=== PATIENT | female | born 1995 | race African-American/Black ===

== ENCOUNTER 2017-09-14 10:09 | Emergency (ER) | payer SELFPAY ==
[2017-09-14 11:45] LABS: Urine Blood NEGATIVE (NEG); Urine Glucose NEGATIVE (NEG); Urine Protein 1+ (NEG); Urine pH 6.5 (5.0-7.0)
[2017-09-14 11:57] LABS: Absolute Monocytes 0.6 K/uL (0.1-1.3); Absolute Neutrophil 3.6 K/uL (1.8-8.0); Basophils % 0.2 % (0-1.3); Eosinophils % 0.6 % (0-4.4); Hematocrit 40.1 % (36.0-45.0); Lymphocytes % 19.2 % (15.3-44.8); MCH 29.2 pg (27.0-35.0); MPV 10.1 fL (7.6-11.3); RBC Red Blood Cell Count 4.72 M/uL (3.86-4.86)
[2017-09-14 12:22] LABS: BUN Blood Urea Nitrogen 13 mg/dL (7-18); Bicarbonate 28 mmol/L (21-32); Glucose Level 91 mg/dL (74-106); Sodium Level 136 mmol/L (136-145)
[2017-09-14 12:37] LABS: T3 Free 2.44 pg/mL (2.18-3.98); Thyroid Stimulating Hormone 1.74 uIU/mL (0.36-3.74)
--- NOTE | 2017-09-14 12:49 | EDPHYS ---
Physician Documentation [facility] Name: Renee Epstein Age: 22 yrs Sex: Female : 1995 Arrival Date: 09/14/2017 Time: 10:14 Bed 14 Private MD: ED Physician Terry Escalera HPI: 09/14 10:30 This 22 yrs old Black Female presents to ER via Ambulatory with complaints of Passed cp Out Prior To Arrival. 10:30 The patient has experienced syncope, collapsed, lost consciousness. Onset: The cp symptoms/episode began/occurred just prior to arrival. Duration: This was a single episode, that lasted an unknown period of time. 10:30 Associated signs and symptoms: Pertinent negatives: abdominal pain, chest pain, cp headache, palpitations, seizure. 10:30 Associated injury: The patient did not suffer any apparent associated injury. Current cp symptoms: Currently, the patient is not experiencing any symptoms. Patient reports she was at doctor's office having blood drawn when she reportedly lost consciousness. 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 - Social history:: Smoking status: Patient/guardian denies using tobacco. - Ebola Screening: : Patient negative for fever greater than or equal to 101.5 degrees Fahrenheit, and additional compatible Ebola Virus Disease symptoms Patient denies exposure to infectious person Patient denies travel to an Ebola-affected area in the 21 days before illness onset No symptoms or risks identified at this time. ROS: 10:35 Constitutional: Negative for body aches, chills, fever, poor PO intake. cp 10:35 Eyes: Negative for injury, pain, redness, and discharge. cp 10:35 ENT: Negative for drainage from ear(s), ear pain, sore throat, difficulty swallowing, difficulty handling secretions. 10:35 Cardiovascular: Negative for chest pain, edema, palpitations. 10:35 Respiratory: Negative for cough, shortness of breath, wheezing. 10:35 Abdomen/GI: Negative for abdominal pain, nausea, vomiting, and diarrhea, constipation, black/tarry stool, rectal bleeding. 10:35 Back: Negative for pain at rest, pain with movement, radiated pain. 10:35 : Negative for urinary symptoms. Exam: 10:40 ECG was reviewed by the Attending Physician. cp 10:42 Constitutional: The patient appears in no acute distress, alert, awake, cp non-diaphoretic, non-toxic, well developed, well nourished. 10:42 Head/Face: Normocephalic, atraumatic. Eyes: Pupils equal round and reactive to light, cp extra-ocular motions intact. Lids and lashes normal. Conjunctiva and sclera are non-icteric and not injected. Cornea within normal limits. Periorbital areas with no swelling, redness, or edema. ENT: Nares patent. No nasal discharge, no septal abnormalities noted. Tympanic membranes are normal and external auditory canals are clear. Oropharynx with no redness, swelling, or masses, exudates, or evidence of obstruction, uvula midline. Mucous membranes moist. Neck: Trachea midline, no thyromegaly or masses palpated, and no cervical lymphadenopathy. Supple, full range of motion without nuchal rigidity, or vertebral point tenderness. No Meningismus. Chest/axilla: Normal chest wall appearance and motion. Nontender with no deformity. No lesions are appreciated. Cardiovascular: Regular rate and rhythm with a normal S1 and S2. No gallops, murmurs, or rubs. Normal PMI, no JVD. No pulse deficits. Respiratory: Lungs have equal breath sounds bilaterally, clear to auscultation and percussion. No rales, rhonchi or wheezes noted. No increased work of breathing, no retractions or nasal flaring. Abdomen/GI: Soft, non-tender, with normal bowel sounds. No distension or tympany. No guarding or rebound. No evidence of tenderness throughout. Skin: Warm, dry with normal turgor. Normal color with no rashes, no lesions, and no evidence of cellulitis. Neuro: Awake and alert, GCS 15, oriented to person, place, time, and situation. Cranial nerves II-XII grossly intact. Motor strength 5/5 in all extremities. Sensory grossly intact. Cerebellar exam normal. Normal gait. Vital Signs: 10:19 BP 122 / 79; Pulse 67; Resp 19; Temp 97.8; Pulse Ox 97% on R/A; Weight 51.26 kg; Height aj 4 ft. 11 in. (149.86 cm); 10:37 BP 118 / 80 Supine; Pulse 89 LA; jb4 10:38 BP 111 / 70 Sitting; Pulse 80 LA; jb4 10:39 BP 101 / 82 Standing; Pulse 70 LA; jb4 12:11 BP 105 / 56; Pulse 71; Resp 16; Pulse Ox 96% on R/A; Pain 0/10; jb4 10:19 Body Mass Index 22.82 (51.26 kg, 149.86 cm) MDM: 10:21 Patient medically screened. cp 11:00 Differential Diagnosis: cardiac arrhythmia, drug effect, GI bleed, , pseudo cp seizure, seizure, vasovagal episode. 12:45 Data reviewed: vital signs, nurses notes, lab test result(s), EKG, and as a result, I cp will discharge patient. 12:45 Counseling: I had a detailed discussion with the patient and/or guardian regarding: the cp historical points, exam findings, and any diagnostic results supporting the discharge/admit diagnosis, lab results, to return to the emergency department if symptoms worsen or persist or if there are any questions or concerns that arise at home. ED course: VSS. Patient not likely to have PE as no complaints of chest pain, not taking any OCPs and non-smoker. Will discharge to home for continued monitoring. 09/14 10:53 Order name: CBC with Diff; Complete Time: 12:30 09/14 12:31 Interpretation: Reviewed. 09/14 10:53 Order name: BMP; Complete Time: 12:30 09/14 11:24 Order name: Urine Dipstick--Ancillary (enter results); Complete Time: 12:30 09/14 12:31 Interpretation: Normal except: UPROT 1+. 09/14 11:24 Order name: Urine --Ancillary (enter results); Complete Time: 12:30 09/14 11:56 Order name: TSH; Complete Time: 12:41 09/14 12:42 Interpretation: Within normal limits: TSH 1.740. 09/14 11:56 Order name: T3 Free; Complete Time: 12:41 09/14 12:42 Interpretation: Within normal limits: T3F 2.44. 09/14 10:21 Order name: Orthostatics; Complete Time: 10:45 09/14 10:21 Order name: Urine Dipstick-Ancillary (obtain specimen); Complete Time: 10:46 cp 09/14 10:21 Order name: Urine Test (obtain specimen); Complete Time: 10:46 cp EC:40 Rate is 63 beats/min. Rhythm is regular. MN interval is normal. QRS interval is normal. cp QT interval is normal. No ST changes noted. Interpreted by me. Reviewed by me. Administered Medications: No medications were administered Disposition: 13:34 Co-signature as Attending Physician, Terry Escalera MD I agree with the assessment and chung plan of care. Disposition: 09/14/17 12:48 Discharged to Home. Impression: Syncope and collapse - Vasovagal. - Condition is Stable. - Discharge Instructions: Syncope. - Medication Reconciliation Form, Thank You Letter, Antibiotic Education, Prescription Opioid Use form. - Follow up: Private Physician; When: 1 - 2 days; Reason: Recheck today's complaints. - Problem is new. - Symptoms have improved. Signatures: Dispatcher [employer] EDSuzi Almaguer, RN RN Terry James MD MD cha Page, Corey, PA PA Kole Gustafson, RN RN jb4 Corrections: (The following items were deleted from the chart) 12:58 12:48 09/14/2017 12:48 Discharged to Home. Impression: Syncope and collapse - jb4 Vasovagal. Condition is Stable. Forms are Medication Reconciliation Form, Thank You Letter, Antibiotic Education, Prescription Opioid Use. Follow up: Private Physician; When: 1 - 2 days; Reason: Recheck today's complaints. Problem is new. Symptoms have improved. cp
--- NOTE | 2017-09-14 12:49 | ER ---
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 Transition of care: patient was not received from another setting of care. Onset of symptoms was September 14, 2017. Risk Assessment: Do you want to hurt yourself or someone else? Patient reports no desire to harm self or others. Initial Sepsis Screen: Does the patient meet any 2 criteria? No. Patient's initial sepsis screen is negative. Does the patient have a suspected source of infection? No. Patient's initial sepsis screen is negative. Care prior to arrival: None. 10:18 Method Of Arrival: Ambulatory aj 10:18 Acuity: NATALIE 4 aj Triage Assessment: 10:19 General: Appears in no apparent distress. comfortable, Behavior is calm, cooperative, aj appropriate for age. Pain: Denies pain. Neuro: Level of Consciousness is awake, alert, obeys commands, Oriented to person, place, time, situation, Appropriate for age Reports a syncopal episode. Respiratory: Airway is patent Respiratory effort is even, unlabored, Respiratory pattern is regular, symmetrical. Derm: Skin is intact, is healthy with good turgor, Skin is pink, warm \T\ dry. normal. 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 - Social history:: Smoking status: Patient/guardian denies using tobacco. - Ebola Screening: : Patient negative for fever greater than or equal to 101.5 degrees Fahrenheit, and additional compatible Ebola Virus Disease symptoms Patient denies exposure to infectious person Patient denies travel to an Ebola-affected area in the 21 days before illness onset No symptoms or risks identified at this time. Screenin:31 Abuse screen: Denies threats or abuse. Denies injuries from another. Nutritional hj screening: No deficits noted. Tuberculosis screening: No symptoms or risk factors identified. Fall Risk None identified. Assessment: 10:40 General: Appears in no apparent distress. uncomfortable, Behavior is cooperative, jb4 appropriate for age, anxious. Pain: Denies pain. Neuro: Level of Consciousness is awake, alert, obeys commands, Oriented to person, place, time, situation. Cardiovascular: Heart tones S1 S2 present Patient's skin is warm and dry. Respiratory: Airway is patent Respiratory effort is even, unlabored, Respiratory pattern is regular, symmetrical, Breath sounds are clear bilaterally. GI: Abdomen is flat, Bowel sounds present X 4 quads. Abd is soft and non tender X 4 quads. : No signs and/or symptoms were reported regarding the genitourinary system. EENT: No signs and/or symptoms were reported regarding the EENT system. Derm: Skin is intact, Skin is dry, Skin is normal, Skin temperature is warm. Musculoskeletal: No signs and/or symptoms reported regarding the musculoskeletal system. 11:42 Reassessment: lab took BMP, CBC blood samples;. hj 12:11 Reassessment: Patient and/or family updated on plan of care and expected duration. Pain jb4 level reassessed. Patient is alert, oriented x 3, equal unlabored respirations, skin warm/dry/pink. Lab called, informed on added labs. Patient states feeling better. Vital Signs: 10:19 BP 122 / 79; Pulse 67; Resp 19; Temp 97.8; Pulse Ox 97% on R/A; Weight 51.26 kg; Height aj 4 ft. 11 in. (149.86 cm); 10:37 BP 118 / 80 Supine; Pulse 89 LA; jb4 10:38 BP 111 / 70 Sitting; Pulse 80 LA; jb4 10:39 BP 101 / 82 Standing; Pulse 70 LA; jb4 12:11 BP 105 / 56; Pulse 71; Resp 16; Pulse Ox 96% on R/A; Pain 0/10; jb4 10:19 Body Mass Index 22.82 (51.26 kg, 149.86 cm) aj ED Course: 10:14 Patient arrived in ED. mr 10:19 Triage completed. aj 10:19 Arm band placed on right wrist. Patient placed in an exam room. aj 10:20 Page, Terry, PA is PHCP. cp 10:20 Terry Escalera MD is Attending Physician. cp 10:31 Danial Jarquin, RN is Primary Nurse. hj 10:31 Patient has correct armband on for positive identification. Bed in low position. Call hj light in reach. Side rails up X 1. 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 reviewed by Terry OCONNOR. at1 12:08 T3 Free Sent. hj 12:08 TSH Sent. hj 12:08 BMP Sent. hj 12:57 No provider procedures requiring assistance completed. Patient did not have IV access jb4 during this emergency room visit. Administered Medications: No medications were administered Outcome: 12:48 Discharge ordered by MD. cp 12:57 Discharged to home ambulatory. jb4 12:57 Condition: stable 12:57 Discharge instructions given to patient, family, Instructed on discharge instructions, follow up and referral plans. Demonstrated understanding of instructions, follow-up care. 12:58 Patient left the ED. jb4 Signatures: Suzi Galo RN RN aj Rivera, Maria mr Suzi faye, promotion producer EKG Tat1 Danial Jarquin, RN Terry Stanford PA PA Kole Gustafson, KESHA RN jb4
--- NOTE | 2017-09-14 14:47 | EKG ---
Test Date: 2017-09-14 Test Time: 10:32:24 Photo Specialist: SANTY MEASUREMENT RESULTS: Intervals: Rate: 63 VT: 124 QRSD: 74 QT: 392 QTc: 401 Lipscomb: P: 78 VT: 124 QRS: 77 T: 38 INTERPRETIVE STATEMENTS: Normal sinus rhythm Normal ECG No previous ECG available for comparison Electronically Signed On 09-14-17 14:45:06 CDT by Randall Aceves
== END 2017-09-14 12:58 | disposition home or self-care (01) ==
LOC: ER 10:09
DX: R55 Syncope and collapse (principal)
CPT/HCPCS: 36415; 80048; 81003; 81025; 84443; 84481; 85025; 93005; 99283